=== PATIENT | female | born 1940 | race Caucasian/White ===

== ENCOUNTER 2021-08-11 11:49 | Outpatient (CLI) | payer MEDICARE, SELFPAY ==
--- NOTE | 2021-08-11 13:01 | ECG_ITS ---
Measurements Intervals Moore Rate: 73 P: 67 OH: 159 QRS: 0 QRSD: 72 T: 30 QT: 365 QTc: 403 Interpretive Statements SINUS RHYTHM BASELINE ARTIFACT- I, II, III, AVR, AVL NORMAL ECG Electronically Signed On 08-11-2021 13:40:52 [employer] by Feliberto Rincon D.O.
[2021-08-11 14:19] LABS: Basophils Absolute Auto 0.1 K/mm3 (0.0-0.1); Basophils Percent Auto 0.9 % (0.2-1.2); Eosinophils Absolute Auto 0.3 K/mm3 (0-0.3); Eosinophils Percent Auto 4.2 % (0-4.4); Hematocrit 39.8 % (37.0-47.0); Hemoglobin 12.8 g/dL (12.0-15.0); Immature Granulocyte Absolute 0.01 K/mm3 (0.00-0.031); Immature Granulocyte Percent A 0.2 % (0-0.5); Lymphocytes Absolute Auto 1.96 K/mm3 (0.9-3.2); Lymphocytes Percent Auto 30.5 % (18.3-44.2); Mean Corpuscular HGB Conc 32.2 g/dl (32-36); Mean Corpuscular Hemoglobin 30.5 pg (26-34); Mean Corpuscular Volume 94.8 fl (80-100); Mean Platelet Volume 10.7 fl (7.4-10.4); Monocytes Absolute Auto 0.6 K/mm3 (0.1-0.6); Monocytes Percent Auto 8.7 % (2.6-8.5); Neutrophils Absolute Auto 3.6 K/mm3 (1.3-6.7); Neutrophils Percent Auto 55.5 % (45.5-73.1); Platelet Count Result 214 k/mm3 (150-375); Red Cell Distribution Width 14.8 % (11.5-14.5); White Blood Count 6.4 K/mm3 (4.5-10.0)
[2021-08-11 14:34] LABS: Urine Cotinine NEGATIVE
[2021-08-11 14:59] LABS: Hemoglobin A1C 5.2 % (<5.7)
[2021-08-11 15:00] LABS: Albumin Level 4.1 g/dL (3.5-5.1); Anion Gap 7 mmol/L (8-16); Blood Urea Nitrogen 16 mg/dL (7-17); Calcium 8.9 mg/dL (8.4-10.2); Carbon Dioxide 25 mmol/L (22-30); Chloride 103 mmol/L (98-107); Estimated Glomerular Filt Rate 43; Glucose 91 mg/dL (65-110); Potassium 4.1 mmol/L (3.4-5.0); Sodium 135 mmol/L (137-145)
== END 2021-08-11 11:50 | disposition home or self-care (01) ==
LOC: ANHSURGERY 11:54
PROVIDERS: PCP Hospitalist; Visit Provider Orthopaedic Surgery
DX: M17.12 Unilateral primary osteoarthritis, left knee (principal); Z01.818 Encounter for other preprocedural examination
CPT/HCPCS: 80048; 80307; 82040; 83036; 85025; 87070; 93005

== ENCOUNTER 2022-06-08 09:45 | Outpatient (RCR) | payer MEDICARE, SELFPAY ==
[2022-04-17 09:38] VITALS: PULSE 80
== END 2022-07-09 10:13 | disposition home or self-care (01) ==
LOC: ANHCPREHAB 09:45
PROVIDERS: PCP Hospitalist
DX: Z95.5 Presence of coronary angioplasty implant and graft (principal); I25.2 Old myocardial infarction
CPT/HCPCS: 93798

== ENCOUNTER 2024-03-01 17:51 | Emergency (ER) | payer MEDICARE, SELFPAY ==
--- NOTE | ~2024-03-01 | XR_ITS ---
EXAMINATION: XR elbow RT min 3V DATE: 03/01/2024 18:28 INDICATION: Right elbow injury. TECHNIQUE: 4 views of right elbow were obtained. COMPARISON: None. FINDINGS: Alignment is normal. No fracture. Joint spaces are normal. No elbow joint effusion. IMPRESSION: 1. No fracture. Reviewed, dictated and finalized at location A. IMPRESSION: 1. No fracture.
--- NOTE | ~2024-03-01 | XR_ITS ---
EXAMINATION: XR finger 4th RT min 2V DATE: 03/01/2024 18:28 INDICATION: Right hand fourth digit injury and swelling. TECHNIQUE: 3 views of right hand fourth digit were obtained. COMPARISON: None. FINDINGS: Alignment is normal. No fracture. Osteopenia is noted. There is moderate osteoarthritis of fourth proximal and distal interphalangeal joints. IMPRESSION: 1. Polyarticular osteoarthritis. Reviewed, dictated and finalized at location A.
--- NOTE | ~2024-03-01 | XR_ITS ---
EXAMINATION: XR ankle LT min 3V DATE: 03/01/2024 18:27 INDICATION: Left ankle injury. TECHNIQUE: 4 views of left ankle were obtained. COMPARISON: None. FINDINGS: Bone alignment is normal. No fracture. Joint spaces are normal. There is an enthesophyte of posterior aspect of calcaneal tuberosity. Ankle soft tissue swelling is noted. IMPRESSION: 1. No fracture. Reviewed, dictated and finalized at location A. IMPRESSION: 1. No fracture.
--- NOTE | 2024-03-01 17:57 | ED.FALL ---
HPI - Fall General Chief Complaint: Fall <Lonny Denis APRN - Last Filed: 03/23/24 12:07> Stated Complaint: fall <Lonny Denis APRN - Last Filed: 03/23/24 12:07> Time Seen by Provider: 03/01/24 18:26 <Lonny Denis APRN - Last Filed: 03/23/24 12:07> Focused HPI: GENERAL: Well-appearing, well-nourished, and in no acute distress. HEAD: Normocephalic, atraumatic. CHEST: Clear to auscultation. No respiratory distress. HEART: Regular rate and rhythm. NEURO: Alert and oriented x3. Patient screened in triage and initial orders placed. Additional care and disposition to be based upon diagnostic testing and treatment. Focused HPI: Patient is an 83-year-old female presents emergency room for evaluation of a mechanical GLF. patient complaining of right elbow, right ring finger, the left ankle pain. Patient also has a skin tear to the right elbow. <Lonny Denis APRN - Last Filed: 03/23/24 12:07> Related Data Home Medications: Home Medications Medication Instructions Recorded Confirmed atorvastatin 40 mg tablet 40 mg PO DAILY 08/11/21 04/17/22 clopidogrel 75 mg tablet 75 mg PO DAILY 04/17/22 04/17/22 lisinopril 5 mg tablet 5 mg PO BID 04/17/22 04/17/22 metoprolol succinate 50 mg 50 mg PO DAILY 04/17/22 04/17/22 tablet,extended release 24 hr nitroglycerin 0.4 mg sublingual 0.4 mg sublingual Q5-15M PRN Chest 04/17/22 04/17/22 tablet (Nitrostat) Pain rivaroxaban 20 mg tablet 20 mg PO QPM 04/17/22 04/17/22 <Lonny Denis APRN - Last Filed: 03/23/24 12:07> Allergies/Adverse Reactions: Allergies Allergy/AdvReac Type Severity Reaction Status Date / Time No Known Allergies Allergy Unverified 08/11/21 12:01 <Lonny Denis APRN - Last Filed: 03/23/24 12:07> Review of Systems Review of Systems: All systems as dictated in HPI <Frandy Huang PA-C - Last Filed: 03/01/24 19:55> PMFSH Family History Family History: Family History (Updated 04/17/22 @ 08:29 by Sofia Scott RN) Father Typhoid Mother Breast cancer <Lonny Denis APRN - Last Filed: 03/23/24 12:07> Social History Social History: Social History Smoking packs per day: 0.5 Smoking cigarettes per day: 10.0 Years smoked: 25 Smoking pack-years: 12.50 Smoking status: Former smoker Tobacco type: cigarettes Smoking end date: 07/05/96 Additional smoking assessment comments: DENIES ANY FORM OF TOBACCO USE Living arrangements: alone Spiritual care concerns: No <Lonny Denis APRN - Last Filed: 03/23/24 12:07> Exam Narrative: GENERAL: Well-appearing, well-nourished, and in no acute distress. HEAD: Normocephalic, atraumatic. EYES: PERRLA and EOMI. ENT: Nares clear, no rhinorrhea or epistaxis. Mucous membranes moist. Oropharynx without tonsillar hypertrophy exudate or other lesions. NECK: Supple. No adenopathy or masses. CHEST: No respiratory distress. Clear to auscultation. No wheezes rales or rhonchi HEART: Regular rate and rhythm. No murmur heard. Normal peripheral pulses. ABDOMEN: Soft, nontender, nondistended, normal active bowel sounds. MSK: right hand: Mild swelling and bruising to the right ring finger. upper extremities are otherwise benign left hand: Benign RLE: mild tenderness to the right ankle LLE: Benign SKIN: angular skin tear to the right elbow. bleeding control. NEURO: Alert and oriented x4. No focal deficits. PSYCH: Normal mood and affect. <Frandy Huang PA-C - Last Filed: 03/01/24 19:55> Course Vital Signs Vital signs: Vital Signs Temperature 36.7 C 03/01/24 18:22 Pulse Rate 74 03/01/24 18:22 Respiratory Rate 16 03/01/24 18:22 Blood Pressure 142/55 H 03/01/24 18:22 Pulse Oximetry 98 03/01/24 18:22 Oxygen Delivery Room Air 03/01/24 18:22 Temperature 36.5 C 03/01/24 20:17 Pulse Rate 86 03/01/24 20:17 Respiratory Rate 16 03/01/24 20:17 Blood Pressure 110/
[2024-03-01 18:22] VITALS: BP 142/55; PULSE 74; RESP 16; TEMP 36.7; O2SAT 98
[2024-03-01] MEDS: TETANUS,DIPHTHERIA,AC PERTUSSIS ADULT (0.5 ML) BOOSTRIX IM (18:56)
[2024-03-01] MEDS: ACETAMINOPHEN 500 MG TABLET 1000 MG PO (20:01)
[2024-03-01 20:17] VITALS: BP 110/78; PULSE 86; RESP 16; TEMP 36.5; O2SAT 98
== END 2024-03-01 20:18 | disposition home or self-care (01) ==
PROVIDERS: Emergency Provider Physician Assistant; PCP Hospitalist
DX: S51.011A Laceration without foreign body of right elbow, initial encounter (principal); S60.041A Contusion of right ring finger without damage to nail, initial encounter; Z23 Encounter for immunization; Z87.891 Personal history of nicotine dependence; M19.041 Primary osteoarthritis, right hand; W18.39XA Other fall on same level, initial encounter
CPT/HCPCS: 12002; 73080; 73140; 73610; 90471; 90715; 99284; A9270